=== PATIENT | female | born 1990 | race Caucasian/White ===

== ENCOUNTER 2017-12-11 11:16 | Inpatient (IN) | payer OTHER ==
[2017-12-11] MEDS ORDERED: Ringers Lactate 1,000 ML IV PRN (16:29)
[2017-12-11] MEDS ORDERED: BUTORPHANOL 1 MG/ML INJ IV PRN (16:29)
[2017-12-11] MEDS ORDERED: PROMETHAZINE 25 MG/ML VIAL IM PRN (16:29)
[2017-12-11] MEDS ORDERED: miSOPROStol 100 MCG TAB PO PRN (16:36)
[2017-12-11 16:42] VITALS: BMI 32.9
[2017-12-11] MEDS ORDERED: ZOLPIDEM TARTRATE 10 MG TABLET PO ONE (16:45)
[2017-12-11] MEDS ORDERED: Ringers Lactate 1,000 ML IV SCH (17:00)
[2017-12-11] MEDS ORDERED: OXYTOCIN/LR 20 UNIT/1,000 ML BAG IV SCH (17:00)
[2017-12-11 17:46] LABS: RPR Titer ND
[2017-12-11 18:09] LABS: Absolute Lymphocytes (CBC) 2.7 K/uL (0.7-4.9); Absolute Monocytes 1.1 K/uL (0.1-1.3); Absolute Neutrophil 9.7 K/uL (1.8-8.0); Basophils % 0.3 % (0-1.3); Eosinophils % 0.9 % (0-4.4); Lymphocytes % 20.1 % (15.3-44.8); MCH 31.5 pg (27.0-35.0); MCV 89.3 fL (80-100); MPV 9.8 fL (7.6-11.3); Monocytes % 7.7 % (3.3-12.3); RBC Red Blood Cell Count 3.92 M/uL (3.86-4.86)
[2017-12-11 18:33] LABS: Urine Appearance CLOUDY; Urine Bilirubin NEGATIVE (NEG); Urine Blood 1+ (NEG); Urine Color YELLOW; Urine Glucose NEGATIVE (NEG); Urine Protein NEGATIVE (NEG); Urine Urobilinogen 0.2 mg/dL (0.2-1.0); Urine pH 6.5 (5.0-7.0)
[2017-12-11 18:38] LABS: Urine Microscopic Reflex ORDER UMIC
[2017-12-11 18:44] LABS: Urine Bacteria >50 /HPF (<20)
[2017-12-11 18:45] LABS: Urine Culture Reflex Order NOT NEEDED
--- NOTE | 2017-12-11 21:15 | PREOPHP ---
Date of Admission: 12/11/2017 Phil Negrete, 27-year-old primigravida, 39 weeks 1 day for Cytotec insertion and . Rodney deleon discussion about the subject, possible risks and complications with the patient and on n umerous occasions and again today, 1.5 cm, 50% effaced, vertex, -1 station. FHTs normal reactive. A nticipate delivery sometime tomorrow. EDDY/LEAH Voice ID: [id number]
[2017-12-11 23:09] LABS: RPR (Rapid Plasma Reagin) NON-REACT (NON-REACT)
[2017-12-12] MEDS ORDERED: miSOPROStol 100 MCG TAB PO SCH (08:00)
--- NOTE | 2017-12-12 11:08 | PN ---
The patient has now had 3 doses of Cytotec, 4 hours passed and she has been started on Pitocin, now a pproximately . She is having contractions every 2-5 minutes. They really are not very str jolly. Baby looks good. Vital signs are all stable. Cervix today is still just 1 cm and the patient really does not tolerate any exam. I think I could possibly get through the cervix, but the patient will not tolerate it. If I can get through the cervix my finger, then we can rupture membranes and g et more rapid progress. Options discussed including sending the patient home at this point. She wan ts to stay and continue with Pitocin until this evening and then will decide what to do at that point . Because she does not tolerate exams, she will not be examined unless she thinks her bag water is b roken, unless contractions get extremely uncomfortable. I will check her again at lunchtime and see what kind of progress we have made. Full discussion. EDDY/LEAH Voice ID: [id number] Report ID: [id number]
--- NOTE | 2017-12-12 16:40 | PN ---
The patient is now 1-1/2 cm, 60% effaced, did manage to rupture membranes. Clear fluid. We were sienna nning another Cytotec dose at 12 p.m. We will discontinue that and start her back on oxytocin. She is still having very light contractions every 2-5 minutes. These should intensify now as membranes h ave been ruptured, and we will start her back on oxytocin. The patient knows that we probably will n ot start making good progress until later this afternoon and probably will not deliver until late ton ight or early in the morning. Full discussion. EDDY/LEAH Voice ID: [id number] Report ID: [id number]
[2017-12-12] MEDS ORDERED: CEFAZOLIN 2 GM in NA CHLORIDE 0.9% 100 ML IVPB ONE (19:20)
[2017-12-12] MEDS ORDERED: NA CIT/CITRIC AC 30 ML ORAL UDC PO ONE (19:20)
[2017-12-12] MEDS ORDERED: MORPHINE SULFATE/PF 1 MG/ML (10 ML AMP) ONE (19:50)
[2017-12-12] MEDS ORDERED: FAMOTIDINE 20 MG/2 ML VIAL IV ONE (19:52)
[2017-12-12] MEDS ORDERED: CEFAZOLIN/SWI 2gm 2 GM/20 ML SYR ONE (19:52)
[2017-12-12] MEDS ORDERED: METOCLOPRAMIDE 10 MG/2mL INJ IV SCH (20:00)
[2017-12-12] MEDS ORDERED: EPHEDRINE SULF 50 MG/ML SYR ONE (20:18)
[2017-12-12] MEDS ORDERED: OXYTOCIN 10 UNIT/ML ML IV ONE (20:27)
[2017-12-12] MEDS ORDERED: BUPIVACAINE 0.75% (PF) 2 ML SP ONE (20:27)
[2017-12-12] MEDS ORDERED: ONDANSETRON HCL 40 MG/20 ML VIAL ONE (20:56)
--- NOTE | 2017-12-12 21:11 | PN ---
The patient is now on 18 milliunits of Pitocin. Eva every 2 to 3 minutes, but the patient st ill does not look extremely uncomfortable. Her cervix is showing no change. The baby is still in th e same position, -1 station. Fluid is clear. She is a good 60% effaced and -1 station. Discussion with the patient and . She is getting little discouraged because she has not gotten a good la bor yet, but she knows that it is still too early to call for , although she knows that at an y point along the line if she wants a we will stop the Pitocin and proceed on with surgical delivery. She has agreed to wait until 7:00 p.m. which is basically 3 hours from now. At that point , we will do pelvic exam and see what the situation is and decide whether we progress on during the n ight or call a halt to vaginal delivery attempt to go with . Full preoperative counseling co ncerning the procedure including infection, blood loss, anesthetic complications, injury to internal organs. present and agrees that this is a reasonable course of action. EDDY/LEAH Voice ID: [id number] Report ID: [id number]
--- NOTE | 2017-12-13 00:01 | PREOPHP ---
Date of Admission: 12/11/2017 A 27-year-old female, still 1-1/2 cm, in spite of good firm contractions every 2-3 minutes. FHTs nor mal reactive. Vital signs completely normal. The patient at this time has expressed desire to proce ed with section. I have encouraged her to wait another 2-3 hours, but she does not wish to wait any longer, wishes to proceed. Her concurs. Infection, blood loss, anesthetic complica tions, injury to bladder, bowel, ureter, postoperative complications, clots in legs, and pneumonia we re discussed. The patient knows fully well this does not constitute all the possible problems that c ould occur during or following surgery. We discussed how we will use sequential hose, antibiotics pr e and postoperatively. We will notify Dr. Gant who is on Anesthesia. We will get an recruitment assistant surge on, but there is no urgency at this point as the patient has failed to progress and once we turn the Pitocin off, I think her contractions were space a part. We will proceed cautiously, but expeditious ly towards a as patient requests. The history and physical is unchanged. Heart and lungs a re clear and vital signs are all normal. EDDY/LEAH Voice ID: [id number]
[2017-12-13] MEDS ORDERED: CEFAZOLIN/NS 1gm 1 GM/50 ML BAG IVPB ONE (03:16)
[2017-12-13] MEDS ORDERED: ONDANSETRON 4 MG/2 ML VIAL IV ONE (03:21)
[2017-12-13] MEDS ORDERED: DIPHENHYDRAMINE 25 MG TAB/CAP PO PRN (03:21)
[2017-12-13] MEDS ORDERED: D5LR 1,000 ML IV SCH (04:00)
[2017-12-13] MEDS ORDERED: CEFAZOLIN/SWI 1gm 1 GM/10 ML SYR ONE (04:11)
[2017-12-13] MEDS: KETOROLAC 30 MG/ML INJ IV PRN ×3 (04:11→18:23)
[2017-12-13] MEDS ORDERED: CEFAZOLIN IV ONE (04:14)
[2017-12-13] MEDS ORDERED: NA CHLORIDE 0.9% IV ONE (04:14)
--- NOTE | 2017-12-13 04:23 | OP ---
Surgeon: Sergei Davis MD Phil Negrete is a 27-year-old female, failure to progress in labor primary section low tr ansverse cervical, spinal block anesthesia. Dr. Barry, anesthesia. Dr. SHAW, material assistant surgeon. Full preoperative counseling concerning procedure and possible complications, including infection, bl ood loss, anesthetic complications, injury to bladder, bowel, ureter, postoperative complications, cl ots in legs, pneumonia. The patient knows fully well this does not constitute all possible problems that could occur during or following surgery. Description Of Procedure: After prepping and draping, timeout was performed. Pfannenstiel incision was created. Incision was carried to the fascia. The fascia was incised and incision carried transv ersely bilaterally. Two small perforators were fulgurated with the Bovie. At this time, anterior fa scial plane was developed with both blunt and sharp dissection, underlying rectus muscle was separate d, perineum elevated, and entered bluntly. Low transverse uterine incision was created. A 7 pounds 9 ounce male was delivered without difficulties. Apgars 9 and 9. Cord blood specimen was obtained. The placenta was removed manually. Uterus cleared of clot and blood and exteriorized. Mildly hypot onic 0.2 mg of Methergine IM. Plus IV drip Pitocin and massage. Estimated blood loss during the pro cedure,1100 cc. Cervical os was dilated with ring clamp. All membranes clear from the intrauterine cavity. Uterus closed with a running-locked stitch. One [id number] stitch in the left angle fo r complete hemostasis. No further bleeding was seen. After closure of the uterus and the uterus is contracted down much better with the Methergine. Gutters cleared of clot and blood. Uterus was repl aced in the peritoneal cavity. Bladder flap replaced with 3-0 Vicryl. Muscles then replaced and sienna ollie back together with a running stitch of 0 Vicryl. Fascia closed with 1 Vicryl running from either angle to the midline. Subcutaneous tissue was closed with 3-0 plain. Absorbable gabrielle placed and then metal gabrielle. The patient tolerated all procedures well. Have been given 2 g of Ancef and tr ansferred back to her room in good condition. Final Diagnosis: Failure to progress in labor. Primary section. Spinal block anesthesia. Mild uterine hypertonicity. Cytotec cervical ripening. NBC/MODL Voice ID: [id number] Report ID: [id number]
[2017-12-13 06:48] LABS: Hematocrit 27.3 % (36.0-45.0)
[2017-12-13] MEDS: Oxycodone HCl/Acetaminophen 1 TAB TAB PO PRN ×3 (08:00→23:22)
--- NOTE | 2017-12-13 11:41 | PN ---
Phil Negrete postoperatively has done well. Vital signs are all stable. Lochia is normal. She h ad 1 large clot when she was brought was brought back to her room, but since then her lochia has been normal. Full postop talk given today. H and H went from 35-28. Full discussion with the patient. She was taking iron during the and she knows she will need to take iron when she goes home . She has had 1 dose of Toradol, but no analgesics yet. We will discontinue her IV if she can stand and walk around the room without difficulties around 10 o'clock. Hines catheter will come out aroun d lunchtime. If all goes well, she will probably go home afternoon or Monday morning. Full postoperative discussion with the patient and her . No post spinal block problems. She has mild pruritis, but otherwise no problems. Rh positive, immune to Rubella, and she has had her Tdap i mmunization already. EDDY/LEAH Voice ID: [id number] Report ID: [id number]
[2017-12-13] MEDS ORDERED: FAMOTIDINE 20 MG/2 ML VIAL IV ONE (19:26)
[2017-12-14] MEDS: Oxycodone HCl/Acetaminophen 1 TAB TAB PO PRN ×3 (04:20→14:50)
--- NOTE | 2017-12-14 13:16 | DS ---
A 27-year-old primigravida at 39 weeks and 1 day. Cytotec for cervical ripening. Labor induction. Failure to progress in labor. Primary section. Low transverse cervical with spinal block a nesthesia. Mild uterine hypotonus. Blood loss 1100 cc. Ancef for prophylaxis pre and postoperative ly. afebrile, ambulating and voiding. Lochia is normal. Will be dismissed later today t o report back to my office next week for staple removal. To report any temperature elevation of 100 degrees or greater, severe pain, heavy bleeding, or any other type of abnormality dismissed with tram adol for analgesia, although she may elect to take Motrin instead. She has had her Tdap immunization . She has no post spinal block problems. Final Diagnoses: Term intrauterine 39 weeks 2 days at time of delivery. Cytotec cervical ripening. Failure to progress in labor. Primary section. Spinal block anesthesia. Mild u terine hypotonus. EDDY/LEAH Voice ID: [id number] Report ID: [id number]
[2017-12-14 16:57] VITALS: BP 112/49; TEMP 96.4
[2017-12-15 04:41] LABS: HBsAG Nonreactive (Nonreactive)
== END 2017-12-14 17:20 | disposition home or self-care (01) | DRG 766 ==
LOC: 2ND-WC 16:09
PROVIDERS: ADMIT Specialist; ATTEND Specialist
PROC: 3E0P7VZ Introduction of Hormone into Female Reproductive, Via Natural or Artificial Opening (ICD-10-PCS; 2017-12-11)
PROC: 3E033VJ Introduction of Other Hormone into Peripheral Vein, Percutaneous Approach (ICD-10-PCS; 2017-12-11)
PROC: 10907ZC Drainage of Amniotic Fluid, Therapeutic from Products of Conception, Via Natural or Artificial Opening (ICD-10-PCS; 2017-12-12)
PROC: 10D00Z1 Extraction of Products of Conception, Low, Open Approach (ICD-10-PCS; principal; 2017-12-12 20:00)
DX: O62.0 Primary inadequate contractions (principal); O62.2 Other uterine inertia; Z3A.39 39 weeks gestation of pregnancy; Z37.0 Single live birth; O26.893 Other specified pregnancy related conditions, third trimester
CPT/HCPCS: 36415; 81003; 81015; 85014; 85018; 85025; 86592; 86901; 87340; 88307; J0690; J2405; J2590; J2765

== ENCOUNTER 2017-12-15 19:15 | Emergency (ER) | payer OTHER ==
--- NOTE | 2017-12-15 20:58 | RAD REPORT ---
EXAM DESCRIPTION: USExtremant Venous Uni Ltd12/15/2017 8:31 pm CLINICAL HISTORY: left leg pain and swelling. COMPARISON: None. FINDINGS: Left common femoral, superficial femoral, popliteal and posterior tibial veins are compre ssible and demonstrate augmentation. Doppler demonstrates good flow. IMPRESSION: No evidence of deep venous thrombosis involving the left lower extremity.
--- NOTE | 2017-12-15 21:21 | EDPHYS ---
Physician Documentation [facility] Name: Phil Negrete Age: 27 yrs Sex: Female : 1990 Arrival Date: 12/15/2017 Time: 19:18 Bed 20 Private MD: Sergei Davis B ED Physician Michael Wyatt HPI: 12/15 21:04 This 27 yrs old Female presents to ER via Wheelchair with complaints of Leg gs Swelling - post csect. 21:05 The complaints affect the left quadriceps and left burroughs. Onset: The symptoms/episode gs began/occurred 4 day(s) ago. Modifying factors: The symptoms are alleviated by nothing. the symptoms are aggravated by movement. Associated signs and symptoms: Pertinent positives: calf tenderness, swelling, Pertinent negatives fever, weakness, erythema. Severity of symptoms: At their worst the symptoms were moderate, in the emergency department the symptoms are unchanged. The patient has not experienced similar symptoms in the past. The patient has been recently seen by a physician: the patient's primary care provider, c section recent discharge, both lower extremities edematous during after pain in left leg only says goes from hip to back of calf.. 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 - Social history:: Smoking status: Patient/guardian denies using tobacco. - Ebola Screening: : Patient negative for fever greater than or equal to 101.5 degrees Fahrenheit, and additional compatible Ebola Virus Disease symptoms Patient denies exposure to infectious person Patient denies travel to an Ebola-affected area in the 21 days before illness onset No symptoms or risks identified at this time. ROS: 21:05 All other systems are negative. gs Exam: 21:05 ENT: Nares patent. No nasal discharge, no septal abnormalities noted. Tympanic gs membranes are normal and external auditory canals are clear. Oropharynx with no redness, swelling, or masses, exudates, or evidence of obstruction, uvula midline. Mucous membranes moist. Cardiovascular: Regular rate and rhythm with a normal S1 and S2. No gallops, murmurs, or rubs. Normal PMI, no JVD. No pulse deficits. Respiratory: Lungs have equal breath sounds bilaterally, clear to auscultation and percussion. No rales, rhonchi or wheezes noted. No increased work of breathing, no retractions or nasal flaring. Abdomen/GI: Soft, non-tender, with normal bowel sounds. No distension or tympany. No guarding or rebound. No evidence of tenderness throughout. Back: No spinal tenderness. No costovertebral tenderness. Full range of motion. Skin: Warm, dry with normal turgor. Normal color with no rashes, no lesions, and no evidence of cellulitis. Neuro: Awake and alert, GCS 15, oriented to person, place, time, and situation. Cranial nerves II-XII grossly intact. Motor strength 5/5 in all extremities. Sensory grossly intact. Cerebellar exam normal. Normal gait. 21:05 Constitutional: The patient appears alert, awake. 21:05 Musculoskeletal/extremity: Pulses: are normal with no appreciated deficits, Perfusion: the patient is normally perfused throughout, Sensation intact. DVT Exam: no appreciated bluish discoloration, no erythema, no increased warmth, pain, of the left leg, swelling, of the right leg, of the left leg, tenderness, of the left leg. Vital Signs: 19:26 BP 120 / 80; Pulse 86; Resp 16; Temp 99.2; Pulse Ox 100% on R/A; Weight 69.85 kg; aj Height 5 ft. 2 in. (157.48 cm); 21:12 BP 99 / 67; Pulse 82; Resp 16; Pulse Ox 100% on R/A; ao 19:26 Body Mass Index 28.17 (69.85 kg, 157.48 cm) aj MDM: 20:02 Patient medically screened. gs 21:05 Differential diagnosis: dvt, strain, sciatica, peripheral edema. Data reviewed: vital gs signs, nurses notes. 12/15 19:33 Order name: Extremity Venous Unilateral Ltd; Complete Time: 21:03 ms Administered Medications: No medications were administered Disposition: 12/15/17 21:21 Discharged to Home. Impression: Pain in left lower leg, Edema, unspecified. - Condition is Stable. - Discharge Instructions: Edema, Musculoskeletal Pain. - Medication Reconciliation Form, Thank You Letter, Antibiotic Education, Prescription Opioid Use form. - Follow up: Sergei Davis MD; When: 2 - 3 days; Reason: Re-evaluation by your physician. Signatures: Dispatcher [employer] Salome London, RN Agapito Holley RN RN Michael Gutierrez MD MD gs Corrections: (The following items were deleted from the chart) 21:34 21:21 12/15/2017 21:21 Discharged to Home. Impression: Pain in left lower leg; Edema, ao unspecified. Condition is Stable. Forms are Medication Reconciliation Form, Thank You Letter, Antibiotic Education, Prescription Opioid Use. Follow up: Sergei Davis; When: 2 - 3 days; Reason: Re-evaluation by your physician. gs
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
[2017-12-15 21:38] VITALS: TEMP 99.2; O2SAT 100
[2017-12-15 21:39] VITALS: BP 99/67
== END 2017-12-15 21:34 | disposition home or self-care (01) ==
LOC: ER 19:15
DX: R60.9 Edema, unspecified (principal); Z88.1 Allergy status to other antibiotic agents
CPT/HCPCS: 93971; 99283

== ENCOUNTER 2020-12-14 14:17 | Inpatient (IN) | payer OTHER ==
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
[2020-12-14] MEDS ORDERED: Ringers Lactate 1,000 ML IV PRN (15:49)
[2020-12-14] MEDS ORDERED: METHYLERGONOVINE 0.2MG/ML AMP IM PRN (15:49)
[2020-12-14] MEDS ORDERED: CARBOPROST TROME 250 MCG/ML IM PRN (15:49)
[2020-12-14] MEDS ORDERED: Ringers Lactate 1,000 ML IV SCH (16:00)
[2020-12-14] MEDS ORDERED: CEFAZOLIN/SWI 2gm 2 GM/20 ML SYR IV SCH (16:15)
[2020-12-14 17:02] LABS: Protime INR 1.01
[2020-12-14 17:06] LABS: Absolute Lymphocytes (CBC) 3.4 K/uL (0.7-4.9); Basophils % 0.5 % (0-1.3); Lymphocytes % 22.7 % (15.3-44.8); MPV 8.9 fL (7.6-11.3); RBC Red Blood Cell Count 4.03 M/uL (3.86-4.86)
[2020-12-14] MEDS ORDERED: BUPIVACAINE 0.75% (PF) 2 ML SP ONE (17:12)
[2020-12-14] MEDS ORDERED: LIDOCAINE 1.5% W/EPI AMP 5 ML ONE (17:12)
[2020-12-14] MEDS ORDERED: MORPHINE SULFATE/PF 1 MG/ML (10 ML AMP) ONE (17:13)
[2020-12-14] MEDS ORDERED: FAMOTIDINE 20 MG/2 ML VIAL IV ONE ×2 (17:17→18:00)
[2020-12-14] MEDS ORDERED: METOCLOPRAMIDE 10 MG/2mL INJ ONE (17:18)
[2020-12-14] MEDS ORDERED: NA CIT/CITRIC AC 30 ML ORAL UDC ONE (17:18)
[2020-12-14] MEDS ORDERED: OXYTOCIN 10 UNIT/ML ML IV ONE (17:19)
[2020-12-14] MEDS ORDERED: EPHEDRINE SULF 50 MG/ML VIAL ONE (17:21)
[2020-12-14] MEDS ORDERED: NA CIT/CITRIC AC 30 ML ORAL UDC PO ONE (18:00)
[2020-12-14] MEDS ORDERED: METOCLOPRAMIDE 10 MG/2mL INJ IV SCH (18:00)
[2020-12-14] MEDS ORDERED: ONDANSETRON 4 MG/2 ML VIAL ONE (18:00)
[2020-12-14] MEDS ORDERED: Oxycodone HCl/Acetaminophen 1 TAB TAB PO PRN ×2 (18:16)
[2020-12-14] MEDS ORDERED: BISACODYL 10 MG RECTAL SUPP PR PRN (18:16)
[2020-12-14] MEDS ORDERED: ACETAMINOPHEN 500 MG TAB PO PRN (18:16)
[2020-12-14] MEDS ORDERED: ONDANSETRON 4 MG (ODT) TAB PO PRN (18:16)
[2020-12-14] MEDS ORDERED: DIPHENHYDRAMINE 25 MG TAB/CAP PO PRN (18:16)
[2020-12-14] MEDS ORDERED: ONDANSETRON 4 MG/2 ML VIAL IV PRN (18:16)
[2020-12-14] MEDS ORDERED: CEFAZOLIN/SWI 1gm 1 GM/10 ML SYR IVP ONE (18:30)
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
[2020-12-14] MEDS ORDERED: OXYTOCIN/LR 20 UNIT/1,000 ML BAG IV SCH (19:00)
[2020-12-14] MEDS ORDERED: D5LR 1,000 ML with OXYTOCIN 20 UNIT IV SCH ×2 (19:00)
[2020-12-14 23:10] LABS: RPR (Rapid Plasma Reagin) NON-REACT (NON-REACT)
[2020-12-14] MEDS: KETOROLAC 30 MG/ML INJ IV PRN (23:42)
[2020-12-15] MEDS ORDERED: Ringers Lactate 2,000 ML IV ONE (06:37)
[2020-12-15] MEDS: ACETAMINOPHEN 500 MG TAB PO PRN ×2 (08:22→16:45)
--- NOTE | 2020-12-15 09:14 | PN ---
Postoperatively, vital signs are all stable. Her H and H did fall more than expected. The patient i s quite alert. She has already gotten up without any kind of side effects. Pulse is in the 60-70 ra nge. Incision looks good. She says she is hungry this morning. We will discontinue her Hines at ar ound lunchtime and IV later in the day if she can ambulate without any problems. Full postop talk gi ryan. We will get another H and H if she shows any signs of dizziness or increase in her pulse. Otparviz calle seems to be doing quite well at this point. EDDY/LEAH Voice ID: [id number] Report ID: [id number]
[2020-12-15] MEDS: KETOROLAC 30 MG/ML INJ IV PRN (11:10)
[2020-12-15] MEDS: IBUPROFEN 600 MG TAB PO PRN (16:45)
[2020-12-15] MEDS ORDERED: MAGNESIUM HYDROXIDE 8% 30 ML PO PRN (18:16)
[2020-12-16] MEDS: IBUPROFEN 600 MG TAB PO PRN ×2 (01:08→07:28)
[2020-12-16 07:46] VITALS: BP 108/65; TEMP 96.5
--- NOTE | 2020-12-16 09:27 | DS ---
Hospital Course: A 30-year-old 2, para 1, underwent repeat section at 38 weeks 6 da ys. At the time of surgery, noted to have extensive scarring, especially on the right-hand side of t he uterus. Most of this was released, but some in the fundal area was left as it was thick and would require extensive dissection, it was not in the surgical field. Blood loss estimated was 800 cc at the time of surgery. The patient came in with mild anemia of 33. Postoperative hematocrit went to 2 5. The patient has had a pulse in the 60s. Blood pressures are normal for her. She is ambulating w ithout dizziness. She will take vitamins and extra iron during the next couple months. The patient is aware of the scarring and the low blood count. She was delivered of a 7 pounds 14 ounces female, Apgars 9 and 9. Low transverse uterine incision. Spinal block anesthesia. No post spinal block problems. She has had her Tdap shot during the . We will phone her in for Tylenol No . 3 for analgesia, which she requested specifically as tramadol caused her a problem after her last d elivery. She is passing gas but has not had a bowel movement yet, offered laxative. She is Rh posit major, immune to rubella, negative strep, negative COVID. Final Diagnoses: Term intrauterine , repeat section, spinal block anesthesia, sign ificant scarring on the right side of the uterus. Pre and postoperative anemia. EDDY/LEAH Voice ID: [id number] Report ID: [id number]
[2020-12-17 10:29] VITALS: BMI 33.3
[2020-12-20 03:08] LABS: HBsAG Nonreactive (Nonreactive)
== END 2020-12-16 11:20 | disposition home or self-care (01) | DRG 788 ==
LOC: 2ND-WC 14:17
PROVIDERS: ADMIT Specialist; ATTEND Specialist
PROC: 10D00Z1 Extraction of Products of Conception, Low, Open Approach (ICD-10-PCS; principal; 2020-12-14 18:00)
DX: O34.211 Maternal care for low transverse scar from previous cesarean delivery (principal); N85.8 Other specified noninflammatory disorders of uterus; O99.02 Anemia complicating childbirth; Z3A.38 38 weeks gestation of pregnancy; Z37.0 Single live birth; Z20.822 Contact with and (suspected) exposure to COVID-19
CPT/HCPCS: 36415; 85014; 85025; 85610; 85730; 86592; 86850; 86900; 86901; 87340; 88307; J0690; J2210; J2405; J2590; J2765; J7120; J7121; U0003